=== PATIENT | female | born 1965 | race Caucasian/White ===

== ENCOUNTER 2018-11-19 22:35 | Emergency (ER) | payer OTHER ==
[2018-11-19 23:00] VITALS: TEMP 97.6
[2018-11-19] MEDS ORDERED: MORPHINE SULFATE INJ 10 MG/ML VIAL IV ONE (23:02)
[2018-11-19] MEDS ORDERED: SODIUM CHLORIDE 0.9% 1000ML 1,000 ML IVS ONE (23:02)
[2018-11-19] MEDS ORDERED: DICYCLOMINE HCL INJ 20 MG/2 ML AMP IM ONE (23:03)
[2018-11-19] MEDS ORDERED: FAMOTIDINE IV PREMIX 20 MG in PREMIX BAG 1 BAG IVPB ONE (23:03)
[2018-11-19] MEDS ORDERED: KETOROLAC TROMETHAMINE INJ 30 MG/ML VIAL IV ONE (23:03)
[2018-11-19] MEDS ORDERED: ONDANSETRON INJ 4 MG/2 ML VIAL IV ONE (23:03)
[2018-11-19 23:38] VITALS: O2SAT 99
--- NOTE | 2018-11-19 23:48 | CT ---
CLINICAL HISTORY: left flank pain COMPARISON: None. TECHNIQUE: CT ABDOMEN PELVIS WITHOUT IV CONTRAST on 11/19/2018 11:01 PM CDT This exam was performed according to our departmental dose-optimization program, which includes automated exposure control, adjustment of the mA and/or kV according to patient size and/or use of iterative reconstruction technique. FINDINGS: Lower lungs are clear. Abdomen: The liver is normal in appearance. There is no biliary dilatation. Gallbladder is decompressed. The pancreas and spleen are normal in appearance. Adrenal glands are normal. Left kidney severely atrophic containing a moderate upper cyst. The lower pole is especially atrophic, although there is some degree of hydronephrosis with extends throughout the ureter to the level of the urinary bladder. Right kidney is unremarkable. Abdominal aorta is normal in course and caliber without aneurysm. There is no free air. There is no retroperitoneal adenopathy. Pelvis: There is no bowel obstruction. There is no free fluid. Uterus is normal in size. Appendix is normal. Skeleton: There are no acute osseous findings. No suspicious bony lesions. IMPRESSION: Mild left hydronephrosis with no clear etiology. Electronically signed by: Brandon Russ MD 11/19/2018 11:47 PM CDT
--- NOTE | 2018-11-19 23:54 | ED.PDOC ---
History of Present Illness - General Chief Complaint: Problem Stated Complaint: left flank/groin pain for 2 hours Time Seen by Provider: 11/19/18 22:41 Source: RN notes reviewed, Vital Signs reviewed - History of Present Illness Timing/Duration: 1-3 hours, getting worse Improving Factors: nothing Worsening Factors: nothing Associated Symptoms: denies symptoms, other - decrease uriantion Allergies/Adverse Reactions: Allergies Sulfa Antibiotics Allergy (Verified 11/19/18 23:00) Home Medications: Ambulatory Orders Ciprofloxacin HCl [Cipro] 500 mg PO 9A5P #20 tab 11/19/18 Dicyclomine HCl [Bentyl] 20 mg PO Q6HR #12 tab 11/19/18 Naproxen [Naproxen EC] 500 mg PO BID #6 tab 11/19/18 Tramadol HCl 50 mg PO Q6HR #10 tab 11/19/18 Review of Systems - Review of Systems Constitutional: States: no symptoms reported EENTM: States: no symptoms reported Respiratory: States: no symptoms reported Cardiology: States: no symptoms reported Gastrointestinal/Abdominal: States: no symptoms reported Genitourinary: States: see HPI Musculoskeletal: States: no symptoms reported Skin: States: no symptoms reported Past Medical History (General) - Patient Medical History Hx Seizures: No Hx Stroke: No Hx Dementia: No Hx Asthma: No Hx of COPD: No Hx Cardiac Disorders: Yes - stents placed Hx Congestive Heart Failure: No Hx Pacemaker: No Hx Hypertension: Yes - not treated Hx Thyroid Disease: No Hx Diabetes: No Hx Gastroesophageal Reflux: No Hx Renal Disease: No Hx Cancer: No Hx of HIV: No Hx Hepatitis C: No Hx MRSA: No Surgical History: other Family Medical History - Family History Mother Family History: Unknown Physical Exam - Physical Exam General Appearance: Restless, Well Developed, Well Groomed, Well Hydrated, Well Nourished Eye Exam: bilateral normal Ears, Nose, Throat: hearing grossly normal Neck: non-tender Respiratory: chest non-tender, lungs clear, normal breath sounds, no respiratory distress Cardiovascular/Chest: normal peripheral pulses, regular rate, rhythm Gastrointestinal/Abdominal: tenderness, other - L flank Back Exam: normal inspection Extremity: normal range of motion, non-tender, normal inspection Neurologic: no motor/sensory deficits, alert, normal mood/affect, oriented x 3 Progress - Progress Progress: 11/19/18 23:54 11/19/18 23:02 Sodium Chloride 0.9% 1000ML [Ns 1000 ml] 1,000 ml IVS ONCE 11/19/18 23:10 Urine Culture Stat Laboratory Results WBC 13.5 K/mm3 (4.8-10.8) H 11/19/18 23:10 RBC 4.71 M/mm3 (4.20-5.40) 11/19/18 23:10 Hgb 14.0 gm/dL (12.0-16.0) 11/19/18 23:10 Hct 41.4 % (36.0-47.0) 11/19/18 23:10 MCV 88.0 fl (81.0-99.0) 11/19/18 23:10 MCH 29.7 pg (27.0-31.0) 11/19/18 23:10 MCHC 33.7 g/dL (33.0-37.0) 11/19/18 23:10 RDW 13.8 % (11.5-14.5) 11/19/18 23:10 Plt Count 260 K/mm3 (130-400) 11/19/18 23:10 MPV 9.3 fl (7.40-10.4) 11/19/18 23:10 Absolute Neuts (auto) 9.50 K/uL (1.8-6.8) H 11/19/18 23:10 Absolute Lymphs (auto) 2.80 K/uL (1.0-3.4) 11/19/18 23:10 Absolute Monos (auto) 0.80 K/uL (0.2-0.8) 11/19/18 23:10 Absolute Eos (auto) 0.20 K/uL (0.0-0.4) 11/19/18 23:10 Absolute Basos (auto) 0.10 K/uL (0.0-0.1) 11/19/18 23:10 Neutrophils % 70.8 % (42.0-78.0) 11/19/18 23:10 Lymphocytes % 21.0 % (20.0-50.0) 11/19/18 23:10 Monocytes % 6.2 % (2.0-9.0) 11/19/18 23:10 Eosinophils % 1.3 % (1.0-5.0) 11/19/18 23:10 Basophils % 0.7 % (0.0-2.0) 11/19/18 23:10 Sodium 138 mmol/L (135-145) 11/19/18 23:10 Potassium 4.0 mmol/L (3.6-5.0) 11/19/18 23:10 Chloride 101 mmol/L (101-111) 11/19/18 23:10 Carbon Dioxide 24 mmol/L (21-31) 11/19/18 23:10 Anion Gap 17.0 (12-18) 11/19/18 23:10 BUN 22 mg/dL (7-18) H 11/19/18 23:10 Creatinine 0.87 mg/dL (0.6-1.3) 11/19/18 23:10 BUN/Creatinine Ratio 25.3 (10-20) H 11/19/18 23:10 Random Glucose 136 mg/dL (70-105) H 11/19/18 23:10 Serum Osmolality 281.1 mOsm/L (275-295) 11/19/18 23:10 Calcium 9.6 mg/dL (8.4-10.2) 11/19/18 23:10 Total Bilirubin 0.3 mg/dL (0.2-1.0) 11/19/18 23:10 AST 23 IU/L (10-42) 11/19/18 23:10 ALT 20 IU/L (10-60) 11/19/18 23:10 Alkaline Phosphatase 90 IU/L (42-121) 11/19/18 23:10 Serum Total Protein 8.2 gm/dL (6.4-8.2) 11/19/18 23:10 Albumin 4.4 g/dl (3.2-5.5) 11/19/18 23:10 Globulin 3.8 gm/dL (2.3-3.5) H 11/19/18 23:10 Albumin/Globulin Ratio 1.2 (1.1-1.9) 11/19/18 23:10 Urine Color Yellow (Yellow) 11/19/18 23:10 Urine Appearance Sl cloudy (Clear) 11/19/18 23:10 Urine pH 6.5 (4.5-7.8) 11/19/18 23:10 Ur Specific [place] 1.015 (1.005-1.030) 11/19/18 23:10 Urine Protein 100 mg/dL H 11/19/18 23:10 Urine Glucose (UA) Negative mg/dL (Negative) 11/19/18 23:10 Urine Ketones Negative mg/dL (NEGATIVE) 11/19/18 23:10 Urine Blood Moderate (Negative) H 11/19/18 23:10 Urine Nitrite Negative 11/19/18 23:10 Urine Bilirubin Negative (NEGATIVE) 11/19/18 23:10 Urine Urobilinogen 0.2 mg/dL (0.2-1.0) 11/19/18 23:10 Ur Leukocyte Esterase Small (Negative) H 11/19/18 23:10 Urine RBC 10-20 /hpf H 11/19/18 23:10 Urine WBC 20-30 /hpf H 11/19/18 23:10 Ur Epithelial Cells 0-1 /hpf 11/19/18 23:10 Urine Bacteria 1+ 11/19/18 23:10 Departure - Departure Clinical Impression: Urinary tract infection, Flank pain, acute Time of Disposition: 23:55 Disposition: Discharge to Home or Self Care Condition: Good Departure Forms: ED Discharge - Pt. Copy, Patient Portal Self Enrollment Instructions: DI for Kidney Infection, DI for Urinary Tract Infection (UTI), DI for Kidney Stones Diet: resume usual diet Activity: increase activity as tolerated, walking as tolerated Prescriptions: Dicyclomine HCl [Bentyl] 20 mg PO Q6HR #12 tab Tramadol HCl 50 mg PO Q6HR #10 tab Ciprofloxacin HCl [Cipro] 500 mg PO 9A5P #20 tab Naproxen [Naproxen EC] 500 mg PO BID #6 tab Home Medications: Ambulatory Orders Ciprofloxacin HCl [Cipro] 500 mg PO 9A5P #20 tab 11/19/18 Dicyclomine HCl [Bentyl] 20 mg PO Q6HR #12 tab 11/19/18 Naproxen [Naproxen EC] 500 mg PO BID #6 tab 11/19/18 Tramadol HCl 50 mg PO Q6HR #10 tab 11/19/18 Comments: Follow up PCP in 1-2 days
[2018-11-20] MEDS ORDERED: PIPERACILLIN/TAZOBACTAM 2.25 GM VIAL IVPB ONE (00:07)
[2018-11-20] MEDS ORDERED: PIPERACILLIN/TAZOBACTAM 4.5 GM in SODIUM CHLORIDE 0.9% 100ML 100 ML IVPB ONE (00:11)
[2018-11-20] MEDS ORDERED: SODIUM CHLORIDE 0.9% 100ML 100 ML IVPB ONE (00:11)
[2018-11-20 01:11] VITALS: BP 122/69
== END 2018-11-20 01:38 | disposition home or self-care (01) ==
LOC: ER 22:35
DX: N39.0 Urinary tract infection, site not specified (principal); R10.9 Unspecified abdominal pain; I10 Essential (primary) hypertension; I51.9 Heart disease, unspecified; Z95.5 Presence of coronary angioplasty implant and graft; Z88.2 Allergy status to sulfonamides
CPT/HCPCS: 74176; 80053; 81001; 85025; 87086; J1885; J2543; J7030; J7050